=== PATIENT | female | born 1980 | race Caucasian/White ===

== ENCOUNTER 2021-01-07 09:15 | Emergency (ER) | payer OTHER ==
[~2021-01-07] VITALS: Ht 165.1 cm; Wt 105.7 kg
[2021-01-08 08:07] LABS: HBSAG SCREEN Negative (Negative); HCV ANTIBODY <0.1 (0.0-0.9)
[2021-01-08 10:11] LABS: HIV SCREEN 4TH GENERATION WRFX Non Reactive (Non Reactive)
== END 2021-01-07 10:06 | disposition home or self-care (01) ==
LOC: ER 09:15
PROVIDERS: Emergency Medicine
DX: S61.231A Puncture wound without foreign body of left index finger without damage to nail, initial encounter (principal); W46.0XXA Contact with hypodermic needle, initial encounter
CPT/HCPCS: 84460; 86703; 86803; 87340; 87389; 99283